=== PATIENT | male | born 1945 | race Caucasian/White ===

== ENCOUNTER 2017-07-18 15:31 | Inpatient (IN) | payer OTHER ==
[~2017-07-18] VITALS: Ht 180.3 cm; Wt 203.2 kg
--- NOTE | ~2017-07-18 | DSS ---
[facility] [place] [address] SHORT STAY SUMMARY Name: SAMMY BECK Room #: 355-P ADM IN M.R.#: [id number] Admission: 07/18/17 Attend Phys: Maximino Olivares Discharge: Date of : 49 Report #: [id number] THIS REPORT FOR: //name// CC: Benito GIBSON unknown DATE OF SERVICE: 07/19/2017 CHIEF COMPLAINT: Confusion. HISTORY OF PRESENT ILLNESS: The patient is a 72-year-old gentleman admitted from [facility] for evaluation of confusion. His history was complicated that apparently before [place], he had a fall at home and suffered a fracture of the left fibula. He was admitted to [facility] in [place], [place], he says for about 2 weeks while he stabilized his condition. He reports that he was given "a medicine there" and he has had that confusion ever since. Once stabilized, they attempted to transfer him to the [facility], where he receives care, but they were unable to due to lack of inpatient beds. He therefore transferred 2 days ago to [facility]. Yesterday, he was reported as being somnolent and refusing care and there was concern of an acute condition causing altered mental status. This morning, he is awake and alert, knows he is at the hospital on [address] in [place]. He remembered all the details of his recent history and his medications from home. He was able to relate to me the care he has received through the [facility]. PAST MEDICAL HISTORY: Diabetes type 2, morbid obesity. He reports a sleep apnea history, but not on any type of treatment, hypertension. He has a cardiac condition for which he has a pacemaker defibrillator, coronary artery disease with prior stent x 2, morbid obesity. PAST SURGICAL HISTORY: As above. FAMILY HISTORY: Noncontributory. SOCIAL HISTORY: Previous 12-[id number]-[id number] history of smoking, quit 10 years ago. Denies alcohol use. ALLERGIES: No known drug allergies. MEDICATIONS: Cipro, DuoNeb, Flomax, subcutaneous heparin, lisinopril, hydrocodone, Zyprexa 5 mg twice a day, calcium plus vitamin D, Senokot, Protonix, NovoLog with meals, Levemir at bedtime, vitamin D, finasteride. REVIEW OF SYSTEMS: He denies headache, chest pain, shortness of breath, abdominal pain, nausea, vomiting, diarrhea, constipation, dysuria, syncope. [facility] [address] [place] [address] SHORT STAY SUMMARY Name: SAMMY BECK Room #: 355-P [facility] IN [facility]#: [id number] Admission: 07/18/17 Attend Phys: Maximino Olivares Discharge: Date of : 49 Report #: [id number] OBJECTIVE: VITAL SIGNS: Temperature 36.8, pulse 54, respirations 18, blood pressure 141/60, O2 sat 91%-95% on room air. GENERAL: He is awake and alert, in no distress. LUNGS: Clear. HEART: Regular. ABDOMEN: Obese, soft, normoactive bowel sounds. EXTREMITIES: No edema. There is posterior cast on the left leg. NEUROLOGIC: He is oriented to place and situation. He gave me all his history. Global strength 4/5 throughout. LABORATORY DATA: ABG with pH 7.4. White count is normal, hemoglobin 13. Sodium 140, creatinine 1.3, glucose 122, albumin 2.5. CT head was negative for acute process. ASSESSMENT: 1. Urinary tract infection, on treatment. 2. Diabetes type 2. 3. Left fibula fracture. 4. Morbid obesity. HOSPITAL COURSE: He was watched overnight with no medical problems. He is not requiring oxygen and it is unclear normal state of mind currently. We talked about transfer back to continue [facility]. [facility]: He will be transferred back to [facility] facility under the care of Dr. Huizar and resume all current medications. [facility]. <ELECTRONICALLY SIGNED> By: Benito Beard MD 07/19/17 [id number] Benito Beard MD /nt
[2017-07-18 16:10] VITALS: BP 109/61
[2017-07-18] MEDS ORDERED: LEVEMIR SUBQ (17:05)
[2017-07-18] MEDS ORDERED: FLOMAX0.4 MG PO (17:05)
[2017-07-18] MEDS ORDERED: NOVOLOG100 UNIT/1 SUBQ (17:05)
[2017-07-18] MEDS ORDERED: NORCO 5-325 TA1 EACH PO (17:07)
[2017-07-18] MEDS ORDERED: FINASTERIDE5 MG PO (17:07)
[2017-07-18] MEDS ORDERED: ACCUNEB SO1.25 MG/1 INH (17:07)
[2017-07-18] MEDS ORDERED: HEPARIN 5 U1 UNIT/ML SUBQ (17:08)
[2017-07-18] MEDS ORDERED: SENNA8.6 MG PO (17:09)
[2017-07-18] MEDS ORDERED: ZYPREXA 5 MG TAB5 MG PO (17:09)
[2017-07-18 17:12] LABS: BE(vivo) 0.4 mmol/L (-2 to +3); HCO3 24.8 mmol/L (22.0-26.0); PCO2 39.5 mmHg (35.0-45.0); PO2 62.3 mmHg (80.0-100.0); pH 7.416 (7.360-7.450); sO2 92.3 % (92.0-98.0)
[2017-07-18 17:24] LABS: HEMOGLOBIN 13.6 gm/dL (14.0-18.0); MCH 29.4 pg (26.0-34.0); MCHC 33.2 g/dL (28.0-37.0); MCV 88.6 fL (80.0-100.0); RBC 4.62 mil/uL (4.50-6.00); RDW 15.4 % (10.5-14.5)
[2017-07-18] MEDS ORDERED: CIPRO500 MG PO (17:32)
[2017-07-18] MEDS ORDERED: CALCIUM 500 +1 EAC5 PO (17:33)
[2017-07-18] MEDS ORDERED: PROTONIX40 M1 PO (17:33)
[2017-07-18] MEDS ORDERED: LISINOPRIL20 MG PO (17:33)
[2017-07-18] MEDS ORDERED: VITAMIN D1000 UNI1 PO (17:34)
[2017-07-18 17:38] LABS: ALBUMIN 2.5 g/dL (3.4-5.0); CALCIUM 8.9 mg/dL (8.5-10.1); CREATININE 1.3 mg/dL (0.7-1.3); POTASSIUM 3.9 mmol/L (3.5-5.1); TOTAL BILIRUBIN 0.5 mg/dL (<0.1-1.0)
[2017-07-18 19:45] VITALS: BP 129/59
[2017-07-18 23:05] VITALS: BP 135/67
[2017-07-19 04:30] VITALS: BP 114/54
[2017-07-19 07:10] VITALS: BP 141/60
[2017-07-19 11:00] VITALS: BP 121/52
== END 2017-07-19 15:27 | DRG 690 ==
LOC: 3W 15:31
PROVIDERS: Internal Medicine
DX: N39.0 Urinary tract infection, site not specified (principal); Z68.44 Body mass index [BMI] 60.0-69.9, adult; E44.0 Moderate protein-calorie malnutrition; E11.9 Type 2 diabetes mellitus without complications; S82.402A Unspecified fracture of shaft of left fibula, initial encounter for closed fracture; E66.01 Morbid (severe) obesity due to excess calories; I10 Essential (primary) hypertension; I25.10 Atherosclerotic heart disease of native coronary artery without angina pectoris; Z95.5 Presence of coronary angioplasty implant and graft; Z87.891 Personal history of nicotine dependence; W18.39XA Other fall on same level, initial encounter; Y93.89 Activity, other specified; Y92.89 Other specified places as the place of occurrence of the external cause; Y99.8 Other external cause status
CPT/HCPCS: 10879